=== PATIENT | male | born 1955 | race Caucasian/White ===

== ENCOUNTER 2019-06-01 06:24 | Day surgery (SDC) | payer MEDICARE, OTHER ==
[2019-05-23 16:01] LABS: ALBUMIN 3.8 G/DL (3.4-5.0); ANION GAP 5 (8-16); BLOOD UREA NITROGEN 16 MG/DL (7-18); CALCIUM 8.9 MG/DL (8.5-10.1); CHLORIDE 103 MMOL/L (99-107); CREATININE 0.89 MG/DL (0.60-1.10); GLUCOSE 120 MG/DL (70-104); POTASSIUM 3.8 MMOL/L (3.5-5.1); SODIUM 138 MMOL/L (135-145); TOTAL CARBON DIOXIDE 30.3 MMOL/L (24-32); eGFR 86 ML/MIN
[2019-05-23 16:06] LABS: PARTIAL THROMBOPLASTIN TIME 30 SECONDS (22-32)
[2019-05-23 16:13] LABS: BASOPHILS # (AUTO) 0.1 X10'3 (0-0.2); BASOPHILS % (AUTO) 0.9 % (0-1); EOSINOPHILS # (AUTO) 0.4 X10'3 (0-0.9); EOSINOPHILS % (AUTO) 6.6 % (0-6); HEMATOCRIT 45.3 % (42.0-52.0); HEMOGLOBIN 15.6 g/dl (14.0-17.9); LYMPHOCYTES # (AUTO) 1.2 X10'3 (1.1-4.8); LYMPHOCYTES % (AUTO) 20.5 % (21-51); MEAN CORPUSCULAR HEMOGLOBIN 31.8 PG (27.0-31.0); MEAN CORPUSCULAR HGB CONC 34.4 g/dL (33.0-36.5); MEAN CORPUSCULAR VOLUME 92.5 FL (78-98); MEAN PLATELET VOLUME 7.9 FL (7.4-10.4); MONOCYTES # (AUTO) 0.6 X10'3 (0-0.9); MONOCYTES % (AUTO) 10.6 % (2-12); NEUTROPHILS # (AUTO) 3.6 X10'3 (1.8-7.7); NEUTROPHILS % (AUTO) 61.4 % (42-75); PLATELET COUNT 211 X10'3 (140-440); RED CELL DISTRIBUTION WIDTH 13.7 % (11.5-14.5); WHITE BLOOD COUNT 5.9 X10'3 (4.5-11.0)
[2019-06-01] VITALS (10 sets, daily range): BP systolic 114–144; BP diastolic 58–91
[~2019-06-01] VITALS: Ht 175.3 cm; Wt 69.2 kg
[2019-06-01] MEDS ORDERED: RANI150C4 PO (06:50)
[2019-06-01] MEDS ORDERED: LIDOcaine/PRILOcaine 5gm cream TP ONE (06:55)
[2019-06-01] MEDS ORDERED: LORazepam 0.5 MG tablet PO PRN (06:55)
[2019-06-01] MEDS ORDERED: diphenhydrAMINE 25mg capsule PO PRN (06:55)
[2019-06-01] MEDS ORDERED: normal saline 1,000 ML IV SCH (06:55)
[2019-06-01] MEDS ORDERED: LIDOcaine 1% (10mg/ml)w/preservative injection 20ml MDV ONE (07:18)
[2019-06-01] MEDS ORDERED: midazolam 2 mg/2 ml injection ONE (07:18)
[2019-06-01] MEDS ORDERED: verapamil 2.5 mg/ml inj IV ONE (07:18)
[2019-06-01] MEDS ORDERED: heparin 1,000unit/ml 10ml vial 10 ML ONE (07:18)
[2019-06-01] MEDS ORDERED: nitroGLYCERIN-Tridil 50MG/D5W 250 ML IV ONE (07:18)
[2019-06-01] MEDS ORDERED: fentaNYL/PF 50MCG/1 ML 2ML syringe ONE (07:18)
[2019-06-01] MEDS ORDERED: iohexol 350MG/ML 100ml bottle IV ONE ×2 (07:19→08:01)
[2019-06-01] MEDS ORDERED: ticagrelor 90mg tablet ONE (08:26)
== END 2019-06-01 12:20 | disposition home or self-care (01) ==
LOC: SSTAY O 06:24
PROVIDERS: ATTEND Internal Medicine Interventional Cardiology
DX: I25.10 Atherosclerotic heart disease of native coronary artery without angina pectoris (principal); I45.10 Unspecified right bundle-branch block; K21.9 Gastro-esophageal reflux disease without esophagitis; Z86.010 Personal history of colon polyps; I49.3 Ventricular premature depolarization
CPT/HCPCS: 36415; 80048; 85025; 85610; 85730; 93458; C1725; C1769; C1874; C1894; C9600; J1644; J2001; J2250; J3010; J7030; Q9967; 99152; 99153; A4620; J3490

== ENCOUNTER 2020-06-24 06:36 | Day surgery (SDC) | payer MEDICARE, BC ==
[2020-06-18 13:58] LABS: BASOPHILS # (AUTO) 0.1 X10'3 (0-0.2); BASOPHILS % (AUTO) 0.7 % (0-1); EOSINOPHILS # (AUTO) 0.5 X10'3 (0-0.9); EOSINOPHILS % (AUTO) 4.5 % (0-6); HEMATOCRIT 43.7 % (42.0-52.0); HEMOGLOBIN 14.9 g/dl (14.0-17.9); LYMPHOCYTES # (AUTO) 1.2 X10'3 (1.1-4.8); LYMPHOCYTES % (AUTO) 11.8 % (21-51); MEAN CORPUSCULAR HEMOGLOBIN 31.4 PG (27.0-31.0); MEAN CORPUSCULAR HGB CONC 34.2 g/dL (33.0-36.5); MEAN CORPUSCULAR VOLUME 92.1 FL (78-98); MEAN PLATELET VOLUME 8.1 FL (7.4-10.4); MONOCYTES # (AUTO) 0.8 X10'3 (0-0.9); NEUTROPHILS # (AUTO) 7.8 X10'3 (1.8-7.7); PLATELET COUNT 202 X10'3 (140-440); RED BLOOD COUNT 4.75 X10'6 (4.70-6.10); RED CELL DISTRIBUTION WIDTH 13.4 % (11.5-14.5); WHITE BLOOD COUNT 10.4 X10'3 (4.5-11.0)
[2020-06-18 14:13] LABS: PARTIAL THROMBOPLASTIN TIME 28 SECONDS (22-32)
[2020-06-18 14:18] LABS: ALBUMIN 3.8 G/DL (3.4-5.0); ANION GAP 5 (8-16); BLOOD UREA NITROGEN 21 MG/DL (7-18); BUN/CREATININE RATIO 24.4 (5.4-32.0); CALCIUM 8.4 MG/DL (8.5-10.1); CHLORIDE 105 MMOL/L (99-107); CREATININE 0.86 MG/DL (0.60-1.10); GLUCOSE 93 MG/DL (70-104); SODIUM 139 MMOL/L (135-145); TOTAL CARBON DIOXIDE 29.4 MMOL/L (24-32); eGFR 89 ML/MIN
[2020-06-24] VITALS (8 sets, daily range): BP systolic 105–116; BP diastolic 58–82
[~2020-06-24] VITALS: Ht 172.7 cm; Wt 64.8 kg
[~2020-06-24 06:36] MED LIST: RANI150C4 PO
[2020-06-24] MEDS ORDERED: normal saline 1,000 ML IV SCH (07:00)
[2020-06-24] MEDS ORDERED: diphenhydrAMINE 25mg capsule PO PRN (07:00)
[2020-06-24] MEDS ORDERED: LIDOcaine/PRILOcaine 5gm cream TP ONE (07:00)
[2020-06-24] MEDS ORDERED: LORazepam 0.5 MG tablet PO PRN (07:00)
[2020-06-24] MEDS ORDERED: CLOP75TA35 PO (07:14)
[2020-06-24] MEDS ORDERED: ASPI-771 (07:14)
[2020-06-24] MEDS ORDERED: iohexol 350MG/ML 100ml bottle IV ONE (10:09)
[2020-06-24] MEDS ORDERED: fentaNYL/PF 50MCG/1 ML 2ML syringe ONE (10:09)
[2020-06-24] MEDS ORDERED: verapamil 2.5 mg/ml inj IV ONE (10:09)
[2020-06-24] MEDS ORDERED: heparin 1,000unit/ml 10ml vial 10 ML ONE (10:09)
[2020-06-24] MEDS ORDERED: LIDOcaine 1% (10mg/ml)w/preservative injection 20ml MDV ONE (10:09)
[2020-06-24] MEDS ORDERED: midazolam 2 mg/2 ml injection ONE (10:09)
[2020-06-24] MEDS ORDERED: nitroGLYCERIN-Tridil 50MG/D5W 250 ML IV ONE (10:10)
[2020-06-24] MEDS ORDERED: proCHLORperazine 10 MG/2 ml inj IV PRN (11:50)
[2020-06-24] MEDS ORDERED: HYDROcodone/acetaminophen 10/325mg tab PO PRN (11:50)
[2020-06-24] MEDS ORDERED: OXAZEpam 15mg capsule PO PRN (11:50)
[2020-06-24] MEDS ORDERED: acetaminophen 325mg tablet PO PRN (11:50)
[2020-06-24] MEDS ORDERED: ondansetron/PF 4mg/2ml inj IV PRN (11:50)
[2020-06-24] MEDS ORDERED: nitroGLYCERIN 0.4mg SUBLingual tab SL PRN (11:50)
[2020-06-24] MEDS ORDERED: HYDROcodone/acetaminophen 5mg/325mg tablet PO PRN (11:50)
== END 2020-06-24 13:30 | disposition home or self-care (01) ==
LOC: SSTAY O 06:36
PROVIDERS: ATTEND Student in an Organized Health Care Education/Training Program
DX: R94.39 Abnormal result of other cardiovascular function study (principal); R07.89 Other chest pain; I25.10 Atherosclerotic heart disease of native coronary artery without angina pectoris; I45.10 Unspecified right bundle-branch block; K21.9 Gastro-esophageal reflux disease without esophagitis; E78.5 Hyperlipidemia, unspecified; Z79.82 Long term (current) use of aspirin; Z79.01 Long term (current) use of anticoagulants; Z86.010 Personal history of colon polyps; Z95.5 Presence of coronary angioplasty implant and graft; Z79.899 Other long term (current) drug therapy
CPT/HCPCS: 36415; 80048; 85025; 85610; 85730; 93005; 93458; 99152; 99153; C1760; C1769; C1894; J1644; J2001; J2250; J3010; J7030; Q0163; Q9967; A4620; A5120; A6258; J3490